=== PATIENT | male | born 1970 | race Caucasian/White ===

== ENCOUNTER 2017-04-15 10:35 | Emergency (ER) | payer BC ==
[2017-04-15] MEDS ORDERED: SODIUM CHLORIDE 0.9% 500 ML IV STA (11:31)
[2017-04-15] MEDS ORDERED: SODIUM CHLORIDE 0.9% 1,000 ML IV STA (11:31)
[2017-04-15] MEDS ORDERED: RX INFO: IV CONTRAST WAS GIVEN 1 EACH MISC MISCELLANE PRN (11:31)
[2017-04-15 11:56] LABS: Basophils # (A) 0.1 k/uL (0-0.2); Basophils % (A) 0 %; CH 29.7; CHCM 33.9; Eosinophils # (A) 0.3 k/uL (0-0.7); Eosinophils % (A) 2 %; HCT 44.3 % (39.0-53.0); Luc # (Auto) 0.18; Luc % (Auto) 1; Lymphocytes # (A) 1.5 k/uL (1.0-4.8); Lymphocytes % (A) 10 %; MCH 29.9 pg (25.0-35.0); MCHC 33.9 g/dL (31.0-37.0); MCV 88.1 fL (80.0-100.0); Monocytes # (A) 0.7 k/uL (0-1.0); Monocytes % (A) 4 %; Neutrophils # (A) 12.4 k/uL (1.3-7.7); Neutrophils % (A) 82 %; RBC 5.03 m/uL (4.30-5.90); RDW 13.7 % (11.5-15.5); WBC (Perox) 14.92
[2017-04-15 12:10] LABS: Prothrombin Time 10.2 sec (9.0-12.0)
[2017-04-15 12:11] LABS: Partial Thromboplastin Time 23.8 sec (22.0-30.0)
[2017-04-15 12:13] LABS: ALT 23 U/L (21-72); AST 14 U/L (17-59); Alkaline Phosphatase 65 U/L (38-126); Anion Gap 9 mmol/L; Blood Urea Nitrogen 20 mg/dL (9-20); Calcium 9.7 mg/dL (8.4-10.2); Carbon Dioxide 22 mmol/L (22-30); Chloride 113 mmol/L (98-107); Glucose 111 mg/dL (74-99); Magnesium 2.2 mg/dL (1.6-2.3); Non-African American GFR(MDRD) >60 (>60 ml/min/1.73 sqM); Phosphorous 2.3 mg/dL (2.5-4.5); Potassium 4.3 mmol/L (3.5-5.1); Sodium 144 mmol/L (137-145); Total Bilirubin 0.5 mg/dL (0.2-1.3); Total Protein 6.8 g/dL (6.3-8.2)
[2017-04-15 12:18] LABS: Creatine Kinase 97 U/L (55-170)
[2017-04-15 12:30] LABS: Troponin I <0.012 ng/mL (0.000-0.034)
--- NOTE | 2017-04-15 13:00 | ED ---
General Adult HPI - General Chief complaint: Dizziness Stated complaint: Dizzy, heaviness in chest Time Seen by Provider: 04/15/17 10:57 Source: patient, RN notes reviewed, old records reviewed Mode of arrival: wheelchair Limitations: no limitations - History of Present Illness Initial comments: This is a 46-year-old now to the ER for evaluation of dizziness. No chest pain no shortness of breath. Symptoms for 2-3 days. Worse with activity. Worse when he changes positions. The room was not spinning around. Prior similar systems of prior PE. Patient's history of neck surgery. No fevers. No cough or congestion. No change in medications Lillian alcohol - Related Data Home Medications Medication Instructions Recorded Confirmed No Known Home Medications [No 04/15/17 04/15/17 Known Home Medications] Allergies Allergy/AdvReac Type Severity Reaction Status Date / Time aspirin Allergy Rash/Hives Verified 04/15/17 11:30 cephalexin monohydrate Allergy Rash/Hives Verified 04/15/17 11:30 [From [employer]] Review of Systems ROS Statement: Those systems with pertinent positive or pertinent negative responses have been documented in the HPI. ROS Other: All systems not noted in ROS Statement are negative. Past Medical History Additional Past Medical History / Comment(s): chronic back and neck pain History of Any Multi-Drug Resistant Organisms: None Reported Past Surgical History: Back Surgery, Orthopedic Surgery Additional Past Surgical History / Comment(s): vasectomy, neck surgery, right knee surgery Past Psychological History: No Psychological Hx Reported Smoking Status: Current every day smoker Past Alcohol Use History: Occasional Past Drug Use History: Marijuana General Exam Limitations: no limitations General appearance: alert, in no apparent distress Head exam: Present: atraumatic, normocephalic, normal inspection Eye exam: Present: normal appearance, PERRL, EOMI. Absent: scleral icterus, conjunctival injection, periorbital swelling ENT exam: Present: normal exam, mucous membranes moist Neck exam: Present: normal inspection. Absent: tenderness, meningismus, lymphadenopathy Respiratory exam: Present: normal lung sounds bilaterally. Absent: respiratory distress, wheezes, rales, rhonchi, stridor Cardiovascular Exam: Present: regular rate, normal rhythm, normal heart sounds. Absent: systolic murmur, diastolic murmur, rubs, gallop, clicks GI/Abdominal exam: Present: soft, normal bowel sounds. Absent: distended, tenderness, guarding, rebound, rigid Extremities exam: Present: normal inspection, full ROM, normal capillary refill. Absent: tenderness, pedal edema, joint swelling, calf tenderness Back exam: Present: normal inspection Neurological exam: Present: alert, oriented X3, CN II-XII intact Psychiatric exam: Present: normal affect, normal mood Skin exam: Present: warm, dry, intact, normal color. Absent: rash Course Vital Signs 04/15/17 10:50 Temperature 98.5 F Pulse Rate 85 Respiratory 20 Rate Blood Pressure 113/69 O2 Sat by Pulse 98 Oximetry - Reevaluation(s) Reevaluation #1: 04/15/17 13:51 Patient's no acute distress, improved with fluids EKG Findings - EKG Comments: EKG Findings:: EKG shows normal sinus rhythm rate of 71, MS 134, QRS 80, QTC 395 Medical Decision Making - Medical Decision Making 40 formality ER for evaluation. Patient just yesterday for evaluation of dizziness dizziness and weakness, feels like he did when he had a prior PE secondary to a surgery that he had. At this time no chest pain. CTA negative for PE level is normal patient can be discharged home - Lab Data Result diagrams: 04/15/17 11:35 04/15/17 11:35 Lab Results 04/15/17 04/15/17 04/15/17 Range/Units 11:35 11:35 11:35 WBC 15.0 H (3.8-10.6) k/uL RBC 5.03 (4.30-5.90) m/uL Hgb 15.0 (13.0-17.5) gm/dL Hct 44.3 (39.0-53.0) % MCV 88.1 (80.0-100.0) fL MCH 29.9 (25.0-35.0) pg MCHC 33.9 (31.0-37.0) g/dL RDW 13.7 (11.5-15.5) % Plt Count 255 (150-450) k/uL Neutrophils % 82 % Lymphocytes % 10 % Monocytes % 4 % Eosinophils % 2 % Basophils % 0 % Neutrophils # 12.4 H (1.3-7.7) k/uL Lymphocytes # 1.5 (1.0-4.8) k/uL Monocytes # 0.7 (0-1.0) k/uL Eosinophils # 0.3 (0-0.7) k/uL Basophils # 0.1 (0-0.2) k/uL PT (9.0-12.0) sec INR (<1.1) APTT (22.0-30.0) sec D-Dimer (<0.60) mg/L FEU Sodium 144 (137-145) mmol/L Potassium 4.3 (3.5-5.1) mmol/L Chloride 113 H (98-107) mmol/L Carbon Dioxide 22 (22-30) mmol/L Anion Gap 9 mmol/L BUN 20 (9-20) mg/dL Creatinine 0.96 (0.66-1.25) mg/dL Est GFR (MDRD) Af Amer >60 (>60 ml/min/1.73 sqM) Est GFR (MDRD) Non-Af >60 (>60 ml/min/1.73 sqM) Glucose 111 H (74-99) mg/dL Calcium 9.7 (8.4-10.2) mg/dL Phosphorus 2.3 L (2.5-4.5) mg/dL Magnesium 2.2 (1.6-2.3) mg/dL Total Bilirubin 0.5 (0.2-1.3) mg/dL AST 14 L (17-59) U/L ALT 23 (21-72) U/L Alkaline Phosphatase 65 (38-126) U/L Total Creatine Kinase 97 (55-170) U/L CK-MB (CK-2) 1.0 (0.0-2.4) ng/mL CK-MB (CK-2) Rel Index 1.0 Troponin I <0.012 (0.000-0.034) ng/mL Total Protein 6.8 (6.3-8.2) g/dL Albumin 4.1 (3.5-5.0) g/dL TSH 1.270 (0.465-4.680) mIU/L Urine Color Urine Appearance (Clear) Urine pH (5.0-8.0) Ur Specific Farley (1.001-1.035) Urine Protein (Negative) Urine Glucose (UA) (Negative) Urine Ketones (Negative) Urine Blood (Negative) Urine Nitrite (Negative) Urine Bilirubin (Negative) Urine Urobilinogen (<2.0) mg/dL Ur Leukocyte Esterase (Negative) 04/15/17 04/15/17 Range/Units 11:35 12:50 WBC (3.8-10.6) k/uL RBC (4.30-5.90) m/uL Hgb (13.0-17.5) gm/dL Hct (39.0-53.0) % MCV (80.0-100.0) fL MCH (25.0-35.0) pg MCHC (31.0-37.0) g/dL RDW (11.5-15.5) % Plt Count (150-450) k/uL Neutrophils % % Lymphocytes % % Monocytes % % Eosinophils % % Basophils % % Neutrophils # (1.3-7.7) k/uL Lymphocytes # (1.0-4.8) k/uL Monocytes # (0-1.0) k/uL Eosinophils # (0-0.7) k/uL Basophils # (0-0.2) k/uL PT 10.2 (9.0-12.0) sec INR 1.0 (<1.1) APTT 23.8 (22.0-30.0) sec D-Dimer <0.17 (<0.60) mg/L FEU Sodium (137-145) mmol/L Potassium (3.5-5.1) mmol/L Chloride (98-107) mmol/L Carbon Dioxide (22-30) mmol/L Anion Gap mmol/L BUN (9-20) mg/dL Creatinine (0.66-1.25) mg/dL Est GFR (MDRD) Af Amer (>60 ml/min/1.73 sqM) Est GFR (MDRD) Non-Af (>60 ml/min/1.73 sqM) Glucose (74-99) mg/dL Calcium (8.4-10.2) mg/dL Phosphorus (2.5-4.5) mg/dL Magnesium (1.6-2.3) mg/dL Total Bilirubin (0.2-1.3) mg/dL AST (17-59) U/L ALT (21-72) U/L Alkaline Phosphatase (38-126) U/L Total Creatine Kinase (55-170) U/L CK-MB (CK-2) (0.0-2.4) ng/mL CK-MB (CK-2) Rel Index Troponin I (0.000-0.034) ng/mL Total Protein (6.3-8.2) g/dL Albumin (3.5-5.0) g/dL TSH (0.465-4.680) mIU/L Urine Color Light Yellow Urine Appearance Clear (Clear) Urine pH 5.5 (5.0-8.0) Ur Specific Farley 1.045 H (1.001-1.035) Urine Protein Negative (Negative) Urine Glucose (UA) Negative (Negative) Urine Ketones Negative (Negative) Urine Blood Negative (Negative) Urine Nitrite Negative (Negative) Urine Bilirubin Negative (Negative) Urine Urobilinogen <2.0 (<2.0) mg/dL Ur Leukocyte Esterase Negative (Negative) - Radiology Data Radiology results: report reviewed (CK negative for PE), image reviewed Disposition Clinical Impression: Dehydration, Dizziness, Weakness Disposition: HOME SELF-CARE Condition: Good Instructions: Dizziness (ED) Referrals: Dorothea Murillo MD [Primary Care Provider] - 1-2 days
[2017-04-15 13:02] LABS: Appearance,Urine Clear (Clear); Bilirubin,Urine Negative (Negative); Glucose,Urine (UA) Negative (Negative); Ketones,Urine Negative (Negative); Leukocyte Esterase,Urine Negative (Negative); Nitrite,Urine Negative (Negative); PH, Urine 5.5 (5.0-8.0); Protein,Urine Negative (Negative); Specific Gravity,Urine 1.045 (1.001-1.035); UA Billing (MACRO vs. MICRO) CHEM; Urobilinogen,Urine <2.0 mg/dL (<2.0)
--- NOTE | 2017-04-15 13:19 | CT ---
CT CHEST FOR PULMONARY EMBOLISM. EXAMINATION TYPE: CT angio chest DATE OF EXAM: 04/15/2017 INDICATION: Dizziness and heaviness in chest CT DLP: 195.60 mGycm, Automated exposure control for dose reduction was used. CONTRAST: Patient injected with 100 ml mL of Omnipaque 350. COMPARISON: 01/14/2012 TECHNIQUE: CT of the chest is performed on a spiral scan at 2 mm thick sections. Study is performed with intravenous contrast timed for evaluation for pulmonary embolism. This will limit additional po rtions of the evaluation. 3-D MIP images reconstructed by the technologist are reviewed on the compu ter in the coronal and sagittal planes. FINDINGS: No persistent filling defects are evident to suggest an acute pulmonary embolism. No mediastinal or hilar adenopathy enlarged by CT criteria is evident. The ascending aorta diameter at the level of the main pulmonary artery is 3.0 cm. The main pulmonary artery diameter at the bifur cation is 2.4 cm. There is some streak opacities at the left base, correlate for atelectasis Limited CT section through the upper abdomen are unremarkable. IMPRESSIONS: 1. No acute pulmonary embolism. 2. Mild streak atelectasis left posterior lateral lung base
[2017-04-15 13:51] VITALS: BP 133/67; PULSE 69; RESP 18; TEMP 97.2
== END 2017-04-15 13:51 | disposition home or self-care (01) ==
LOC: EC 10:35
DX: E86.0 Dehydration (principal); R53.1 Weakness; R42 Dizziness and giddiness; F17.200 Nicotine dependence, unspecified, uncomplicated; Z88.6 Allergy status to analgesic agent; Z88.1 Allergy status to other antibiotic agents
CPT/HCPCS: 99285; 96360; 96361; 36415; 93005; 85379; 80053; 82550; 82553; 83735; 84100; 84443; 84484; 85025; 85610; 85730; 81003; 87086; 71275; Q9967

== ENCOUNTER → 2018-08-04 | Outpatient (CLI) | payer BC ==
--- NOTE | 2018-08-05 13:26 | MR ---
EXAMINATION TYPE: MR cervical spine wo/w con DATE OF EXAM: 08/04/2018 COMPARISON: Plain film 09/27/2014 HISTORY: Cervicalgia TECHNIQUE: Multiplanar, multisequence images of the cervical spine were acquired utilizing 7.5 mL intravenous Ga davist gadolinium contrast. Diffusion weighted imaging was performed. C2-C3: No evidence for degenerative disc disease. No disc bulge/herniation or protrusion. No Canal stenosis. Foramina are patent bilaterally. C3-C4: Posterior broad-based disc bulge causes mild anterior mass effect on the thecal sac. Hypertrop hic changes encroaches on the left neural foramen causing some foraminal foraminal encroachment on th e left greater than right. C4-C5: Posterior extension of endplate disc complex causes mild anterior mass effect on the thecal sa c. No significant central canal stenosis or foraminal encroachment. C5-C6: No evident disc herniation. No significant canal stenosis or foraminal encroachment. C6-C7: There is some hypertrophic changes resulting in some left-sided foraminal encroachment greater than right. No significant central stenosis or evident disc herniation. C7-T1: Lateral extension of endplate disc complex causes some mild right-sided foraminal encroachment . No evident disc herniation or significant central canal stenosis. Cervical segments are intact. There is normal alignment. Cervical spinal cord is of normal signal. Craniovertebral junction relationships are within normal limits. Patient is status post anterior cer vical fusion and discectomy at C5-C7. There is susceptibility artifact due to patient's metallic hard romano. Cervical vertebral bodies show preserved height and alignment. There is multilevel spondylosis with minimal endplate discogenic marrow signal change. Loss of disc height signal greatest at C3-4, C 4-5. No abnormal enhancement following contrast menstruation. IMPRESSION: Postop changes. Degenerative disc disease, no significant canal stenosis or disc herniation. Foramina l encroachment as described.
== END | disposition home or self-care (01) ==
LOC: RADMRIMAIN 06:48
PROVIDERS: ATTEND Physical Medicine & Rehabilitation
DX: M50.31 Other cervical disc degeneration, high cervical region (principal); Z98.890 Other specified postprocedural states
CPT/HCPCS: 72156

== ENCOUNTER 2020-03-04 07:56 | Emergency (ER) | payer BC ==
[2020-03-04 08:02] VITALS: RESP 18; TEMP 99.8
--- NOTE | 2020-03-04 08:36 | ED ---
General Adult HPI - General Chief complaint: Extremity Injury, Lower Stated complaint: pain left knee Time Seen by Provider: 03/04/20 08:05 Source: patient Mode of arrival: wheelchair Limitations: no limitations - History of Present Illness Initial comments: Dictation was produced using [employer] dictation software. please excuse any grammatical, word or spelling errors. This patient was cared for during a federal and state declared state of emergency secondary to Covid 19 Chief Complaint: 49-year-old male presents with left knee pain History of Present Illness: 49-year-old male with past medical history of chronic back and neck pain presents with left knee pain. She works in the trade. Patient states that yesterday he was at work where he was going up and down ladders. He had a pretty exhausting day work. He went home and bent over when he felt a pop in his left knee. He immediately felt left anterior knee pain just below the knee joint. Patient states that he has never had pain like this before. Denies any radiation to the groin or to the foot. Patient denies any swelling to the knee. He has history of meniscal tear to the right knee requiring arthroscopic several years ago. Patient states that his pain is severe causing him to limp however he still able to ambulate. The ROS documented in this emergency department record has been reviewed and confirmed by me. Those systems with pertinent positive or negative responses have been documented in the HPI. All other systems are other negative and/or noncontributory. PHYSICAL EXAM: General Impression: Alert and oriented x3, not in acute distress HEENT: Normocephalic atraumatic, extra-ocular movements intact, pupils equal and reactive to light bilaterally, mucous membranes moist. Cardiovascular: Heart regular rate and rhythm Chest: Able to complete full sentences, no retractions, no tachypnea Abdomen: abdomen soft, non-tender, non-distended, no organomegaly Musculoskeletal: Pulses present and equal in all extremities, no peripheral edema Left knee: No knee effusion, mild erythema to the medial aspect of the left lower tendon, patella is not superiorly displaced Motor: no focal deficits noted Neurological: CN II-XII grossly intact, no focal motor or sensory deficits noted Skin: Intact with no visualized rashes Psych: Normal affect and mood ED course: 49-year-old male with acute onset left knee pain after feeling a pop. Vital signs upon arrival shows heart rate of 106, rest of vital signs within acceptable limits. Clinical presentation concerning for soft tissue injury. There is concern that patient's symptoms are secondary to partial patellar tendon injury. He reports he does have crutches at home. She is advised to remain nonweightbearing to the left lower extremity. Patient and referral to orthopedic surgery. X-rays are unremarkable. Discussed patient that there is no acute fractures notified at this time. Patient placed in knee immobilizer. He is given prescription for crutches. He is told to remain nonweightbearing to the left lower extremity. Analgesic medications are prescribed. Patient given referral to orthopedic surgery. - Related Data Previous Rx's Medication Instructions Recorded HYDROcodone/APAP 5-325MG [[place] 1 tab PO Q6HR PRN 3 Days #12 tab 03/04/20 5-325] Allergies Allergy/AdvReac Type Severity Reaction Status Date / Time aspirin Allergy Rash/Hives Verified 03/04/20 08:02 cephalexin monohydrate Allergy Rash/Hives Verified 03/04/20 08:02 [From [employer]] Review of Systems ROS Statement: Those systems with pertinent positive or pertinent negative responses have been documented in the HPI. ROS Other: All systems not noted in ROS Statement are negative. Past Medical History Additional Past Medical History / Comment(s): chronic back and neck pain History of Any Multi-Drug Resistant Organisms: None Reported Past Surgical History: Back Surgery, Orthopedic Surgery Additional Past Surgical History / Comment(s): vasectomy, neck surgery, right knee surgery Past Psychological History: No Psychological Hx Reported Smoking Status: Current every day smoker Past Alcohol Use History: None Reported Past Drug Use History: None Reported General Exam Limitations: no limitations Course Vital Signs 03/04/20 07:58 Temperature 99.8 F H Pulse Rate 106 H Respiratory 18 Rate Blood Pressure 139/73 O2 Sat by Pulse 96 Oximetry Disposition Clinical Impression: Knee pain Disposition: HOME SELF-CARE Condition: Fair Instructions (If sedation given, give patient instructions): Knee Pain (ED) Prescriptions: HYDROcodone/APAP 5-325MG [[place] 5-325] 1 tab PO Q6HR PRN 3 Days #12 tab PRN Reason: Severe Pain Is patient prescribed a controlled substance at d/c from ED?: Yes If prescribed controlled substance>3 days was MAPS reviewed?: Prescribed <3 Days Referrals: Riley Viera MD [STAFF PHYSICIAN] - 1-2 days Time of Disposition: 09:12
--- NOTE | 2020-03-04 09:06 | XR ---
EXAMINATION TYPE: XR knee complete LT DATE OF EXAM: 03/04/2020 CLINICAL HISTORY: Pop in the left knee with anterior medial pain TECHNIQUE: Three views of the left knee are obtained. COMPARISON: None. FINDINGS: There is no acute fracture/dislocation evident in left knee. The tri-compartment joint sp aces appear within normal limits. The overlying soft tissue appears unremarkable. IMPRESSION: There is no acute fracture or dislocation in the left knee.
[2020-03-04 09:31] VITALS: BP 123/88; PULSE 74
== END 2020-03-04 09:25 | disposition home or self-care (01) ==
LOC: EC 07:56
DX: M25.562 Pain in left knee (principal); F17.200 Nicotine dependence, unspecified, uncomplicated; Z88.1 Allergy status to other antibiotic agents; Z88.6 Allergy status to analgesic agent
CPT/HCPCS: 99283

== ENCOUNTER 2023-05-01 05:00 | Emergency (ER) | payer BC ==
[2023-05-01 05:06] VITALS: RESP 18
--- NOTE | 2023-05-01 05:35 | ED ---
Lower Extremity Injury HPI - General Chief Complaint: Extremity Injury, Lower Stated Complaint: Foot injury Time Seen by Provider: 05/01/23 05:21 Source: patient, RN notes reviewed, old records reviewed Mode of arrival: ambulatory Limitations: no limitations - History of Present Illness Initial Comments: This is a 53-year-old male to the emergency department today for evaluation severe left ankle pain and left foot pain. Pain occurred last night will getting off the couch going to bed. Symptoms persisted throughout the day and again mildly worse. No travel history no sick contacts no other significant complaints. MD Complaint: leg injury, ankle injury, fall -: hour(s) Injury: Leg: Left, Ankle: Left, Foot: Left Type of Injury: blunt, inversion Place: home Severity: moderate Severity scale (1-10): 6 Worsens With: weight bearing Context: fall Associated Symptoms: swelling, numbness Treatments Prior to Arrival: other (0) - Related Data Previous Rx's Medication Instructions Recorded HYDROcodone/APAP 5-325MG [[place] 1 tab PO Q6HR PRN 3 Days #12 tab 03/04/20 5-325] Allergies Allergy/AdvReac Type Severity Reaction Status Date / Time aspirin Allergy Rash/Hives Verified 05/01/23 05:06 cephalexin monohydrate Allergy Rash/Hives Verified 05/01/23 05:06 [From [employer]] Review of Systems ROS Statement: Those systems with pertinent positive or pertinent negative responses have been documented in the HPI. ROS Other: All systems not noted in ROS Statement are negative. Past Medical History Additional Past Medical History / Comment(s): chronic back and neck pain History of Any Multi-Drug Resistant Organisms: None Reported Past Surgical History: Back Surgery, Orthopedic Surgery Additional Past Surgical History / Comment(s): vasectomy, neck surgery, right knee surgery Past Psychological History: No Psychological Hx Reported Smoking Status: Vaper Past Alcohol Use History: None Reported Past Drug Use History: None Reported General Exam Limitations: no limitations General appearance: alert, in no apparent distress Head exam: Present: atraumatic, normocephalic, normal inspection Eye exam: Present: normal appearance, PERRL, EOMI. Absent: scleral icterus, conjunctival injection, periorbital swelling ENT exam: Present: normal exam, mucous membranes moist Neck exam: Present: normal inspection. Absent: tenderness, meningismus, lymphadenopathy Respiratory exam: Present: normal lung sounds bilaterally. Absent: respiratory distress, wheezes, rales, rhonchi, stridor Cardiovascular Exam: Present: regular rate, normal rhythm, normal heart sounds. Absent: systolic murmur, diastolic murmur, rubs, gallop, clicks GI/Abdominal exam: Present: soft, normal bowel sounds. Absent: distended, tenderness, guarding, rebound, rigid Extremities exam: Present: normal inspection, tenderness, normal capillary refill. Absent: full ROM, pedal edema, joint swelling, calf tenderness Back exam: Present: normal inspection Neurological exam: Present: alert, oriented X3, CN II-XII intact Psychiatric exam: Present: normal affect, normal mood Skin exam: Present: warm, dry, intact, normal color. Absent: rash Course Vital Signs 05/01/23 05/01/23 05:03 06:36 Temperature 98 F 98.7 F Pulse Rate 66 72 Respiratory 18 18 Rate Blood Pressure 138/83 133/83 O2 Sat by Pulse 100 98 Oximetry - Reevaluation(s) Reevaluation #1: 05/01/23 06:22 Medical record is reviewed Reevaluation #2: 05/01/23 06:22 Patient now requiring anything for pain able to ambulate Reevaluation #3: 05/01/23 06:22 Patient informed of results and questions are answered Reevaluation #4: 05/01/23 05:35 Was pt. sent in by a medical professional or institution? @ -no Did you speak to anyone other than the patient for history? @ -no Did you review nursing and triage notes? @ -agree Were old charts reviewed? @ -yes Differential Diagnosis? @ -prior EKG interpreted by me (3pts min.)? @ -no X-rays interpreted by me (1pt min.)? @ -yes CT interpreted by me (1pt min.)? @ -no U/S interpreted by me (1pt. min.)? @ -no What testing was considered but not performed? (CT, X-rays, U/S, labs)? Why? @ -no What meds were considered but not given? Why? @ -no Did you discuss the management of the patient with other professionals? @ -no Did you reconcile home meds? @ -no Was smoking cessation discussed for >3mins.? @ -no Was critical care preformed (if so, how long)? @ -no Were there social determinants of health that impacted care today? How? (Homelessness, low income, unemployed, alcoholism, drug addiction, transportation, low edu. Level, literacy, decrease access to med. care, [place] [facility], rehab)? @ -no Was there de-escalation of care discussed even if they declined? (Discuss DNR or withdrawal of care, Hospice)? @ -no What co-morbidities impacted this encounter? (DM, HTN, Smoking, COPD, CAD, Cancer, CVA, Hep., AIDS, mental health diagnosis, sleep apnea, morbid obesity)? @ -none Was patient admitted / discharged? @ -53 male to the emergency department for evaluation of fall with left ankle sprain and pain. Patient is able to bear weight and can be discharged home Discharge Undiagnosed new problem with uncertain prognosis? @ -no Drug Therapy requiring intensive monitoring for toxicity (Heparin, Nitro, Insulin, Cardizem)? @ -no Were any procedures done? @ -no Diagnosis/symptom? @ -Ankle pain sprain Acute, or Chronic, or Acute on Chronic? @ -acute Uncomplicated (without systemic symptoms) or Complicated (systemic symptoms)? @ -complicated Side effects of treatment? @ -no Exacerbation, Progression, or Severe Exacerbation] @ -no Poses a threat to life or bodily function? @ -no Medical Decision Making - Medical Decision Making 53 male to the emergency department for evaluation of fall with left ankle sprain and pain. Patient is able to bear weight and can be discharged home - Radiology Data Radiology results: report reviewed (X-ray ankle and foot are negative for traumatic injury), image reviewed Disposition Clinical Impression: Left ankle sprain Disposition: HOME SELF-CARE Condition: Good Instructions (If sedation given, give patient instructions): Ankle Sprain (ED) Is patient prescribed a controlled substance at d/c from ED?: No Referrals: Dorothea Murillo MD [Primary Care Provider] - 1-2 days Time of Disposition: 06:20
--- NOTE | 2023-05-01 05:46 | XR ---
EXAMINATION TYPE: XR foot complete LT, XR ankle complete LT DATE OF EXAM: 05/01/2023 CLINICAL HISTORY: pain TECHNIQUE: Frontal, lateral and oblique images of the left ankle and foot are obtained. COMPARISON: None. FINDINGS: There is no acute fracture/dislocation evident in the left ankle. The ankle mortise appea rs within normal limits. The overlying soft tissue appears unremarkable. There is no acute fracture or dislocation evident in the left foot. The joint spaces in the left yaz t are preserved. Overlying soft tissue is unremarkable. IMPRESSION: Unremarkable studies.
[2023-05-01 06:37] VITALS: BP 133/83; PULSE 72; TEMP 98.7
== END 2023-05-01 06:37 | disposition home or self-care (01) ==
LOC: EC 05:00
DX: S93.402A Sprain of unspecified ligament of left ankle, initial encounter (principal); F17.290 Nicotine dependence, other tobacco product, uncomplicated; Z88.6 Allergy status to analgesic agent; Z88.1 Allergy status to other antibiotic agents; W19.XXXA Unspecified fall, initial encounter; Y92.009 Unspecified place in unspecified non-institutional (private) residence as the place of occurrence of the external cause
CPT/HCPCS: 99283